=== PATIENT | female | born 1975 | race Caucasian/White ===

== ENCOUNTER 2019-03-23 04:18 | Emergency (ER) | payer SELFPAY ==
[2019-03-23 04:19] VITALS: BP 150/109; PULSE 101; RESP 20; TEMP 36.7; O2SAT 98; BMI 51.5
--- NOTE | 2019-03-23 04:37 | ED.VISSUMM ---
- ER Visit Summary Date of Service: 03/23/19 Chief Complaint: Bilateral atraumatic knee pain History of Present Illness: The patient is a 43 F history of degenerative arthritis in both knees. She was told a while ago she may need the replacements. Recently she is been moving but doing a lot of walking states the last 1 to 2 weeks she is had increased knee pain. Denies any falls or trauma. She is had pain in her knees for years intermittently. Denies any fever or redness. Physical Examination: Well-appearing middle-aged female. Vital signs are stable. Afebrile. HEENT exam unremarkable. Lungs clear to auscultation bilaterally. Heart regular rhythm no murmur. Abdomen obese but soft and nontender. Normal bowel sounds no peritoneal signs. Patient is moving all 4 extremities. They are neurovascularly intact. Calves are nontender without edema. She has normal flexion-extension of both knees but has crepitance consistent with degenerative arthritis. There is no redness or warmth. There is no significant effusions. Neurologically she is awake alert with no focal motor deficits. Test Results: None Emergency Department Course and Treatment: Patient's history and exam are consistent with degenerative arthritis of both knees. She will be treated with limited [place] home pack. Otherwise anti-inflammatories for pain. Treatment Plan: Ice elevate knees. Naprosyn for pain. Call and follow-up with local orthopedic physician. Disposition: Discharge Impression: Acute atraumatic, bilateral knee pain secondary to degenerative arthritis This note was generated with [employer] dictation software. It may contain incorrect words, spelling, and punctuation that were not noted in review of the chart prior to signing ED Disposition - Plan for ED Patient: Referrals: NOT,DEFINED [Primary Care Provider] -
--- NOTE | 2019-03-23 04:41 | DCINST.ED_ITS ---
ED Disposition - Plan for ED Patient: Instructions: ED Degenerative Joint Disease Prescriptions: Naproxen [Naprosyn] 500 mg PO BID PRN PRN 10 Days #20 tab PRN Reason: Pain Referrals: Gloria Kelsey DO [STAFF PHYSICIAN] - As soon as possible Additional Instructions: Ice elevate both knees. Inflammation and pain. [place] for limited pain relief. Call follow-up with a local orthopedic physician.
[2019-03-23] MEDS: HYDROcodone Bitartrate/Apap 5/325 Tablet PO (04:53)
[2019-03-23 04:55] VITALS: BP 141/79; PULSE 93; RESP 18; O2SAT 96
== END 2019-03-23 04:57 | disposition home or self-care (01) ==
LOC: ED 04:45
PROVIDERS: Emergency Provider Emergency Medicine
DX: M17.0 Bilateral primary osteoarthritis of knee (principal); Z72.0 Tobacco use
CPT/HCPCS: 99282